=== PATIENT | female | born 1960 | race Caucasian/White ===

== ENCOUNTER 2018-07-22 14:26 | Emergency (ER) | payer OTHER ==
--- NOTE | 2018-07-22 14:37 | EDPHY ---
H & P Source: Patient Exam Limitations: No limitations Time Seen by Provider: 07/22/18 14:37 HPI/ROS: HPI: This is a 58-year-old female who presents with Chief Complaint: Lower abdominal pain, history of diverticulitis Location: Lower abdomen Quality: Cramping Pain Duration: 2 weeks Signs and Symptoms: no fever, + nausea, no vomiting, no hematemesis, no blood in stool, no abdominal bloating, no diarrhea, no back pain, no urinary symptoms , no vaginal bleeding/discharge, no indigestion, no chest pain, no shortness of breath Timing: Acute, daily, constant Severity: Moderate Context: Patient reports that she is originally from [place], [place] , here visiting her daughter presents with complaints of lower abdominal cramping intermittent pain for the last 2 weeks. She reports that her pain is moderate in intensity and nonradiating. It is accompanied by nausea but no vomiting, no fever, no diarrhea, no urinary symptoms. Patient has a history of perforated diverticulitis requiring drainage. She is on day 5 of 10 of Cipro and Flagyl without improvement in her symptoms. She is scheduled to fly back to [place] this evening and is requesting CT scan and IV fluids prior to her plane departure. He has been on liquid/diverticular diet for the last 2 weeks. Modifying Factors: Cipro and Flagyl Comment: ROS: A comprehensive 10 system review of systems is otherwise negative aside from elements mentioned in the history of present illness. MEDICAL/SURGICAL/SOCIAL HISTORY: Medical history: History of perforated diverticulitis requiring drainage Surgical history: Denies Social history: with children. Nonsmoker. Family history noncontributory. CONSTITUTIONAL: Nontoxic-appearing middle-aged white female, awake and alert, no obvious distress HEENT: Atraumatic and normocephalic, PERRL, EOMI. Nares patent; no rhinorrhea; no nasal mucosal edema. Tympanic membranes clear. Oropharynx clear, no exudate and moist pink mucosa. Airway patent. No lymphadenopathy. No meningismus. Cardiovascular: Normal S1/S2, regular rate, regular rhythm, without murmur rub or gallop. PULMONARY/CHEST: Symmetrical and nontender. Clear to auscultation bilaterally. Good air movement. No accessory muscle usage. ABDOMEN: Soft, nondistended, moderate lower abdominal tenderness, no rebound, no guarding, no peritoneal signs, no masses or organomegaly. No CVAT. EXTREMITIES: 2/2 pulses, strength 5/5, no deformities, no clubbing, no cyanosis or edema. NEUROLOGICAL: no focal neuro deficits. GCS 15. SKIN: Warm and dry, no erythema. no rash. Good capillary refill. (Bailey Fairbanks) Constitutional: Initial Vital Signs Temperature (C) 36.6 C 07/22/18 14:37 Heart Rate 63 07/22/18 14:37 Respiratory Rate 16 07/22/18 14:37 Blood Pressure 113/74 07/22/18 14:37 O2 Sat (%) 97 07/22/18 14:37 O2 Delivery Mode Room Air Allergies/Adverse Reactions: ibuprofen Allergy (Verified 07/22/18 14:36) Home Medications: Medication Instructions Recorded Ciprofloxacin 07/22/18 Flagyl 07/22/18 Klonopin 07/22/18 Tylenol 07/22/18 Medical Decision Making ED Course/Re-evaluation: Vital signs reviewed and stable upon arrival. IV access, laboratory studies, CT abdomen and pelvis scan ordered Patient politely declines urinalysis as she has no urinary symptoms. Given 1 L normal saline 1515: Laboratory studies reviewed. WBC 5 K, creatinine 0.8. No platelet dysfunction, no anemia, no electrolyte imbalance, no elevated LFTs, no pancreatitis 1549: Called by radiologist, Dr. Carlos, who reports that CT abdomen and pelvis scan shows no signs of diverticulitis, no obstruction, no appendicitis. Does show left ovarian cyst that is measuring 5 x 5 cm Discussed obtaining a pelvic ultrasound with patient and she reports that she had one in February that showed a left ovarian cyst measuring 7 cm. Patient prefers to follow up with her OBGYN in [place]. Patient is asking to be discharged as she needs to "catch a plane." Given Percocet in the emergency room and patient's daughter will be driving her to the airport. This patient was seen under the supervision of my secondary supervising physician. I evaluated care for this patient independently. (Bailey Fairbanks) The patient was evaluated and managed by the physician senior underwriting assistant. I have reviewed this chart and I agree with the findings and plan of care as documented , as indicated by my signature. I am the secondary supervising physician. ( Tanisha Perales) Differential Diagnosis: Abdominal pain including but not limited to appendicitis, cholecystitis, gastritis and urinary tract infection. (Bailey Fairbakns) - Data Points Laboratory Results: Laboratory Results 07/22/18 14:50 07/22/18 14:50 Medications Given: Discontinued Medications Sodium Chloride (Ns) 1,000 mls @ 0 mls/hr IV EDNOW ONE; Wide Open PRN Reason: Protocol Stop: 07/22/18 14:46 Last Admin: 07/22/18 14:59 Dose: 1,000 mls Oxycodone/Acetaminophen (Percocet 5/325) 1 tab PO EDNOW ONE Stop: 07/22/18 15:48 Last Admin: 07/22/18 15:54 Dose: 1 tab Point of Care Test Results: Chemistry 07/22/18 14:58 POC Sodium 142 mEq/L mEq/L (135-145) POC Potassium 3.6 mEq/L mEq/L (3.3-5.0) POC Chloride 107 mEq/L mEq/L (97-110) POC Total CO2 22 mEq/L mEq/L (22-31) POC BUN 7 mg/dL mg/dL (7-23) POC Creatinine 0.8 mg/dL mg/dL (0.6-1.0) POC Glucose 90 mg/dL mg/dL (70-100) ISTAT H&H 07/22/18 14:58 POC Hgb 12.2 gm/dL L gm/dL (12.6-16.3) POC Hct 36 % L % (38-47) Departure - Departure Disposition: Home, Routine, Self-Care Clinical Impression: Cyst of left ovary, History of diverticulitis Condition: Good Instructions: Ovarian Cyst (ED), Laparoscopic Excision of Ovarian Cysts (DC) Additional Instructions: Consume a minimum of 8-10 glasses of water or electrolyte fluid replacement drinks that include Gatorade, Powerade, Pedialyte. Eat a low residue diet for the next 48 hours and then slowly advance as tolerated. Continue to finish antibiotic course. Follow up with OBGYN for evaluation of ovarian cyst. It is recommended that you obtain a pelvic ultrasound. Take Tylenol 650 mg every 4 hours and/or Ibuprofen 600 mg every 8 hours with food as needed for pain. Use Percocet every 6 hours as needed for severe/break through pain. Do not use Tylenol and Percocet concomitantly. Referrals: VENITA MAY MD [Other] - As per Instructions
[2018-07-22] MEDS ORDERED: NS 1,000 ML IV ONE (14:45)
[2018-07-22] MEDS ORDERED: IOPAMIDOL (ISOVUE-300) 100 ML BTL ONE (15:00)
[2018-07-22 15:01] LABS: PLATELET COUNT 235 10^3/uL (150-400)
[2018-07-22] MEDS ORDERED: OXYCODONE/APAP 5/325 TAB PO ONE (15:47)
[2018-07-22 16:02] VITALS: BP 115/75
== END 2018-07-22 16:03 | disposition home or self-care (01) ==
DX: N83.292 Other ovarian cyst, left side (principal); K76.89 Other specified diseases of liver; E86.9 Volume depletion, unspecified; Z87.19 Personal history of other diseases of the digestive system
CPT/HCPCS: 82435-PO; 82565-PO; 82947-PO; 84132-PO; 84295-PO; 84520-PO; 85014-ER; Q9967